=== PATIENT | male | born 1980 | race Caucasian/White ===

== ENCOUNTER 2020-01-10 21:32 | Emergency (ER) | payer OTHER ==
[~2020-01-10] VITALS: Ht 180.3 cm; Wt 81.6 kg
--- NOTE | 2020-01-10 21:41 | NUR ---
PATIENT BIBA TO ER FOR C/O ANXIETY A/O X4. ABLE TO SPEAK IN COMPLETE SENTENCES. FOLLOWS COMMANDS RESPIRATION EVEN AND UNLABORED NO CARDIOVASCULAR DISTRESS NOTED DENIES CHANGES IN /GI AMBULATES WITH STEADY GAIT SR UP FOR SAFETY. BED LOCKED AND LOWEST POSITION. INTRUCTED PATIENT TO CALL NURSE FOR ASSISTANCE. MONITORED ACCORDINGLY WILL CONTINUE TO MONITOR
--- NOTE | 2020-01-10 21:42 | NUR ---
DR. DIAZ AT BEDSIDE FOR MSE.
[2020-01-10] MEDS ORDERED: LORAZEPAM 1 MG TABLET ONE ×2 (21:45→22:41)
[2020-01-10] MEDS ORDERED: LORAZEPAM 0.5 MG TABLET PO ONE ×2 (21:45→22:45)
[2020-01-10] MEDS ORDERED: ONDANSETRON ODT 4 MG TAB.RAPDIS ONE (21:59)
[2020-01-10] MEDS ORDERED: ONDANSETRON ODT 4 MG TAB.RAPDIS SL ONE (22:00)
[2020-01-10] MEDS ORDERED: ACETAMINOPHEN ES 500 MG TABLET ONE (22:16)
[2020-01-10] MEDS ORDERED: ACETAMINOPHEN ES 500 MG TABLET PO ONE (22:45)
[2020-01-11] MEDS ORDERED: LORAZEPAM 0.5 MG TABLET PO ONE ×2 (03:15→07:00)
[2020-01-11] MEDS ORDERED: PANTOPRAZOLE SODIUM 40 MG TABLET.DR PO ONE ×2 (03:15)
[2020-01-11] MEDS ORDERED: LORAZEPAM 1 MG TABLET ONE (03:15)
[2020-01-11] MEDS ORDERED: ONDANSETRON 4 MG/2 ML VIAL IV ONE (03:30)
[2020-01-11] MEDS ORDERED: IV NORMAL SALINE 500 ML BAG IV ONE (03:30)
[2020-01-11] MEDS ORDERED: PANTOPRAZOLE SODIUM 40 MG VIAL IV ONE (03:30)
--- NOTE | 2020-01-11 03:30 | NUR ---
Patient with c/o nausea and emesis x1, verbal order received from Dr. Rubi to place IV line, NS 1 liter bolus, protonix 40mg IVP and zofran 8mg IVP.
[2020-01-11] MEDS ORDERED: PANTOPRAZOLE SODIUM 40 MG VIAL ONE (03:31)
[2020-01-11] MEDS ORDERED: ONDANSETRON 4 MG/2 ML VIAL ONE (03:31)
--- NOTE | 2020-01-11 05:55 | NUR ---
patient c/o chest pain or right side 03/17, VSS taken HR 120's, patient states feeling anxious at this time. Dr. Rubi made aware, new orders received.
[2020-01-11] MEDS ORDERED: LORAZEPAM 2 MG/1 ML VIAL ONE (06:12)
[2020-01-11] MEDS ORDERED: LORAZEPAM 2 MG/1 ML VIAL IV ONE (06:15)
[2020-01-11 06:23] LABS: BASOPHILS % (AUTO) 0.3 % (0.0-2.0); EOSINOPHILS % (AUTO) 0.1 % (0.0-7.0); HEMATOCRIT 50.4 % (36.7-47.1); HEMOGLOBIN 17.1 g/dL (12.5-16.3); LYMPHOCYTES # (AUTO) 1.6 K/uL (20.0-40.0); LYMPHOCYTES % (AUTO) 32.4 % (20.5-51.5); MEAN CORPUSCULAR HGB CONC 34 g/dL (32.5-36.3); MEAN CORPUSCULAR VOLUME 100.3 fL (73.0-96.2); MONOCYTES # (AUTO) 0.3 K/uL (2.0-10.0); NEUTROPHILS # (AUTO) 3.1 K/uL (1.8-8.9); NEUTROPHILS % (AUTO) 61.2 % (38.5-71.5); PLATELET COUNT (AUTO) 242 K/uL (152-348); RED BLOOD CELL COUNT(AUTO) 5.02 MIL/uL (4.06-5.63)
[2020-01-11 06:34] LABS: POTASSIUM 3.5 mmol/L (3.5-5.1)
[2020-01-11] MEDS ORDERED: LORAZEPAM 0.5 MG TABLET ONE (06:55)
--- NOTE | 2020-01-11 07:02 | NUR ---
Patient discharged to home in stable condition. Written and verbal after care instructions given. Patient verbalizes understanding of instructions. Stressed follow up or return to ER for worsening s/s. Ambulatory with steady gait. No signs of distress. Instructed not to drive. Will ride a cab home.
[2020-01-11 07:05] VITALS: BP 142/90
== END 2020-01-11 07:02 | disposition home or self-care (01) ==
LOC: ER 21:34
DX: F10.280 Alcohol dependence with alcohol-induced anxiety disorder (principal); F10.239 Alcohol dependence with withdrawal, unspecified; Y90.9 Presence of alcohol in blood, level not specified; I44.4 Left anterior fascicular block; R00.0 Tachycardia, unspecified
CPT/HCPCS: 36415; 71045; 80051; 84484; 85025; 93005; 96361; 96374; 96375; 99285; C9113; J2060; J2405; 70030-TC; A9150; J7030; Q0162

== ENCOUNTER 2022-01-22 03:44 | Emergency (ER) | payer OTHER ==
[~2022-01-22] VITALS: Ht 175.3 cm; Wt 101.6 kg
--- NOTE | 2022-01-22 04:20 | NUR ---
pt bib ra for binge drinking and depression.
[2022-01-22 04:38] LABS: HEMATOCRIT 52.1 % (36.7-47.1); MEAN CORPUSCULAR HEMOGLOBIN 35.5 uug (23.8-33.4); MEAN CORPUSCULAR VOLUME 100.4 fL (73.0-96.2); PLATELET COUNT (AUTO) 266 K/uL (152-348)
[2022-01-22 04:51] LABS: CARBON DIOXIDE 27 mmol/L (21-32); CHLORIDE 96 mmol/L (98-107); CREATININE 0.6 mg/dL (0.6-1.3); GLUCOSE 119 mg/dL (74-106); POTASSIUM 3.5 mmol/L (3.5-5.1); UREA NITROGEN, BLOOD 6 mg/dL (7-18)
[2022-01-22] MEDS ORDERED: BUSP5TAB3 PO (04:51)
[2022-01-22 04:57] LABS: ALANINE AMINOTRANSFERASE 80 U/L (16-63); ALKALINE PHOSPHATASE 74 U/L (50-136); ASPARTATE AMINOTRANSFERASE 63 U/L (15-37); BILIRUBIN,DIRECT 0.3 mg/dL (0.0-0.2); BILIRUBIN,TOTAL 0.9 mg/dL (0.2-1.0); CREATINE KINASE, TOTAL 586 U/L (39-308)
[2022-01-22 05:01] LABS: ACETAMINOPHEN < 2.0 ug/mL (10-30)
--- NOTE | 2022-01-22 05:05 | NUR ---
Dr. Wolf at bedside speaking with the pt.
[2022-01-22] MEDS ORDERED: MAGNESIUM SULFATE/D5W 100 ML IV SCH (05:15)
[2022-01-22] MEDS ORDERED: IV NS 1000 ML 1,000 ML IV ONE (05:15)
[2022-01-22] MEDS ORDERED: FOLIC ACID 5 MG/ML VIAL IV ONE ×2 (05:15→05:30)
[2022-01-22] MEDS ORDERED: THIAMINE HCL 200 MG/2 ML VIAL IV ONE (05:15)
[2022-01-22] MEDS ORDERED: LORAZEPAM 2 MG/1 ML VIAL IV ONE ×5 (05:15→14:30)
[2022-01-22] MEDS ORDERED: THIAMINE HCL 200 MG/2 ML VIAL ONE (05:29)
[2022-01-22] MEDS ORDERED: MAGNESIUM SULFATE/D5W 100 ML ONE ×2 (05:29→06:05)
[2022-01-22] MEDS ORDERED: LORAZEPAM 2 MG/1 ML VIAL ONE ×4 (05:31→14:29)
[2022-01-22 05:35] LABS: ETHANOL 319 MG/DL (0-0)
[2022-01-22] MEDS ORDERED: ONDANSETRON 4 MG/2 ML VIAL IV ONE ×2 (05:45→08:45)
[2022-01-22] MEDS ORDERED: ONDANSETRON 4 MG/2 ML VIAL ONE ×2 (05:50→08:13)
[2022-01-22 05:59] LABS: *BILIRUBIN,URIN NEGATIVE (NEGATIVE); *BLOOD, URINE 2+ (NEGATIVE); *CLARITY,URINE CLEAR (CLEAR); *COLOR,URINE YELLOW (YELLOW); *KETONES,URINE 2+ (NEGATIVE); *UROBILINOGEN,URINE 0.2 E.U./dl (NORMAL); LEUKOCYTE ESTERASE ,URINE NEGATIVE (NEGATIVE); NITRITE, URINE NEGATIVE (NEGATIVE); PH,URINE 5.5 (5.0-8.0); UGLUCOSE NEGATIVE (NEGATIVE)
[2022-01-22 06:15] LABS: *AMPHETAMINE, URINE NEGATIVE (NEGATIVE); *CANNABINOID, URINE POSITIVE (NEGATIVE); *COCCAINE, URINE NEGATIVE (NEGATIVE); *OPIATE, URINE NEGATIVE (NEGATIVE)
[2022-01-22 06:39] LABS: BACTERIA,URINE FEW /HPF (NONE SEEN); SQUAMOUS EPITHELIAL CELL,UR FEW /HPF (NONE SEEN); WBC,URINE 0-3 /HPF (0-3)
[2022-01-22 07:27] LABS: *PHENCYCLIDINE SCREEN,URINE NEGATIVE (NEGATIVE)
--- NOTE | 2022-01-22 07:55 | NUR ---
patient awake and ambulating to restroom, patient denies any dizziness. Steady Gait, AAOx4, GCS 15. patient verbalizes feeling anxious and nausea, no SI no DTO at the moment
--- NOTE | 2022-01-22 09:15 | NUR ---
reassessed patient post ativan. patient is resting with eyes closed, no signs or symptoms nor complaints of anxiety
[2022-01-22] MEDS ORDERED: diphenhydrAMINE 50 MG/1 ML VIAL ONE (10:11)
[2022-01-22] MEDS ORDERED: METOCLOPRAMIDE HCL 10 MG/2 ML VIAL ONE ×2 (10:11→15:14)
[2022-01-22] MEDS ORDERED: IV NORMAL SALINE 1000 ML BAG IV ONE ×2 (10:15→12:00)
[2022-01-22] MEDS ORDERED: diphenhydrAMINE 50 MG/1 ML VIAL IV ONE (10:15)
[2022-01-22] MEDS ORDERED: METOCLOPRAMIDE HCL 10 MG/2 ML VIAL IV ONE ×2 (10:15→15:30)
[2022-01-22] MEDS ORDERED: ONDA8TAB65 PO (12:29)
[2022-01-22] MEDS ORDERED: LORA0.5T48 PO (12:29)
--- NOTE | 2022-01-22 14:47 | NUR ---
patient moved from bed 5A to bed 4A, patient ambulated, steady gait
--- NOTE | 2022-01-22 15:06 | NUR ---
spoke to Rigo from [facility] explained patients condition and recieved authorization to begin process to admit patient
[2022-01-22] MEDS ORDERED: MAG HYDROX/AL HYDROX/SIMETH 30 ML LIQUID UDC ONE (16:14)
[2022-01-22] MEDS ORDERED: LIDOCAINE VISCUS 2% 15 ML UDC ONE (16:14)
[2022-01-22] MEDS ORDERED: MAG HYDROX/AL HYDROX/SIMETH 30 ML LIQUID UDC PO ONE (16:15)
[2022-01-22] MEDS ORDERED: LIDOCAINE VISCUS 2% 15 ML UDC MM ONE (16:15)
[2022-01-22] MEDS ORDERED: IV D5W-0.9% NS 1000 ML BAG IV ONE (16:30)
--- NOTE | 2022-01-22 16:49 | NUR ---
patient resting with eyes closed, heart rate 91 bpm on monitor SR
--- NOTE | 2022-01-22 17:53 | NUR ---
Patient discharged to home in stable condition. Written and verbal after care instructions given. Patient verbalizes understanding of instructions. Stressed follow up or return to ER for worsening s/s. steady gait, IV dc, wristband removed
[2022-01-22 18:54] VITALS: BP 126/83
== END 2022-01-22 18:00 | disposition home or self-care (01) ==
LOC: ER 03:47
DX: F10.239 Alcohol dependence with withdrawal, unspecified (principal); Y90.8 Blood alcohol level of 240 mg/100 ml or more; E86.0 Dehydration; F32.A Depression, unspecified; F41.9 Anxiety disorder, unspecified; R00.0 Tachycardia, unspecified; Z82.49 Family history of ischemic heart disease and other diseases of the circulatory system; R03.0 Elevated blood-pressure reading, without diagnosis of hypertension
CPT/HCPCS: 36415; 80048; 80076; 80299; 80307; 80320; 81001; 82550; 85025; 93005; 96361; 96365; 96375; 96376; 99285; J1200; J2060 ×4; J2405 ×2; J2765 ×2; J3411; J3475 ×2; J3490; J7040 ×3; J7042; A4663; G0480

== ENCOUNTER 2022-05-14 23:06 | Emergency (ER) | payer SELFPAY ==
[~2022-05-14] VITALS: Ht 175.3 cm; Wt 101.6 kg
[~2022-05-14 23:06] MED LIST: BUSP5TAB3 PO; LORA0.5T48 PO; ONDA8TAB65 PO
--- NOTE | 2022-05-15 00:50 | NUR ---
After being traiged, patient was sent back to waiting room due to no beds available in the ER.
--- NOTE | 2022-05-15 02:00 | NUR ---
Patient was called in the waiting room for vital sign check but patient was not present in the waiting room or outside of ER.
--- NOTE | 2022-05-15 02:30 | NUR ---
Patient was called again in the waiting room but patient was not present. PATIENT WAS TRIAGED BUT NOT SEEN BY [facility].
== END 2022-05-15 02:46 | disposition left against medical advice (07) ==
LOC: ER 23:24
DX: Z53.21 Procedure and treatment not carried out due to patient leaving prior to being seen by health care provider (principal)

== ENCOUNTER 2022-06-10 16:15 | Emergency (ER) | payer OTHER ==
[2022-06-10 17:17] LABS: HEMATOCRIT 46.7 % (36.7-47.1); MEAN CORPUSCULAR HEMOGLOBIN 33.4 uug (23.8-33.4); MEAN CORPUSCULAR VOLUME 101.5 fL (73.0-96.2); PLATELET COUNT (AUTO) 340 K/uL (152-348)
[2022-06-10 17:27] LABS: *CLARITY,URINE CLEAR (CLEAR); *COLOR,URINE YELLOW (YELLOW); *KETONES,URINE 1+ (NEGATIVE); LEUKOCYTE ESTERASE ,URINE NEGATIVE (NEGATIVE); NITRITE, URINE NEGATIVE (NEGATIVE); PH,URINE 5.5 (5.0-8.0); UGLUCOSE NEGATIVE (NEGATIVE)
[2022-06-10 17:28] LABS: *BILIRUBIN,URIN 1+ (NEGATIVE); *BLOOD, URINE NEGATIVE (NEGATIVE)
[2022-06-10 17:28] LABS: BILIRUBIN,TOTAL 0.3 mg/dL (0.2-1.0); CREATININE 0.7 mg/dL (0.6-1.3); POTASSIUM 3.2 mmol/L (3.5-5.1); TOTAL PROTEIN, SERUM 7.7 g/dL (6.4-8.2)
[2022-06-10 17:29] LABS: BACTERIA,URINE FEW /HPF (NONE SEEN); RBC,URINE 0-3 /HPF (0-3); SQUAMOUS EPITHELIAL CELL,UR NONE SEEN /HPF (NONE SEEN); WBC,URINE 0-3 /HPF (0-3)
--- NOTE | 2022-06-10 17:29 | NUR ---
at bedside for evaluation.
[2022-06-10] MEDS ORDERED: POTASSIUM BICARBONATE/CIT AC 25 MEQ TABLET.EFF PO ONE (17:45)
[2022-06-10] MEDS ORDERED: IV NS 1000 ML 1,000 ML IV ONE (17:45)
[2022-06-10] MEDS ORDERED: PANTOPRAZOLE SODIUM 40 MG VIAL IV ONE (17:45)
[2022-06-10] MEDS ORDERED: DIAZEPAM 10 MG/2 ML DISP.SYRIN IV ONE (17:45)
[2022-06-10] MEDS ORDERED: POTASSIUM BICARBONATE/CIT AC 25 MEQ TABLET.EFF ONE (18:07)
[2022-06-10] MEDS ORDERED: DIAZEPAM 10 MG/2 ML DISP.SYRIN ONE (18:07)
[2022-06-10] MEDS ORDERED: PANTOPRAZOLE SODIUM 40 MG VIAL ONE (18:07)
--- NOTE | 2022-06-10 19:20 | NUR ---
Report recieved from Alyssa SWEENEY.
[2022-06-10] MEDS ORDERED: MAGNESIUM SULFATE/D5W 100 ML ONE ×2 (20:07→21:11)
[2022-06-10] MEDS: MAGNESIUM SULFATE/D5W 100 ML IV SCH ×2 (20:41→21:16)
[2022-06-10] MEDS ORDERED: LORAZEPAM 2 MG/1 ML VIAL IV ONE (20:45)
[2022-06-10] MEDS ORDERED: LORAZEPAM 2 MG/1 ML VIAL ONE (20:52)
--- NOTE | 2022-06-10 23:03 | NUR ---
Patient A/Ox3. NAD noted. Ambulatory with steady gait/slow pace. Patient does not wish to proceed with medical care recommended by Dr. Wolf. Patient given information related to possible complications, up to and including , which could occur as a result of leaving the hospital at this time. Patient verbalizes understanding of risks involved due to leaving against medical advice. Patient has signed AMA form. Patient waiting in waiting room until father (Bart) picks him up.
[2022-06-10 23:06] VITALS: BP 130/86
== END 2022-06-10 23:00 | disposition left against medical advice (07) ==
LOC: ER 16:15
DX: F10.239 Alcohol dependence with withdrawal, unspecified (principal); S62.616A Displaced fracture of proximal phalanx of right little finger, initial encounter for closed fracture; S00.81XA Abrasion of other part of head, initial encounter; W19.XXXA Unspecified fall, initial encounter; Y92.89 Other specified places as the place of occurrence of the external cause; E87.6 Hypokalemia; F41.9 Anxiety disorder, unspecified; R00.0 Tachycardia, unspecified; I44.4 Left anterior fascicular block; G31.9 Degenerative disease of nervous system, unspecified; Z53.29 Procedure and treatment not carried out because of patient's decision for other reasons
CPT/HCPCS: 99285; 96365; 96375; 70450; 96361; 96366; 80053; 81001; 83690; 84443; 85025; 84484 ×2; 36415; 93005 ×2; 73140; 29130; J3360; J2060; J3475 ×2; C9113; J7040; A4663

== ENCOUNTER 2022-07-04 07:08 | Emergency (ER) | payer OTHER ==
[~2022-07-04] VITALS: Ht 175.3 cm; Wt 101.6 kg
--- NOTE | 2022-07-04 08:30 | NUR ---
Pt is resting in the bed. Awake a/o but lethergic. Pt states his last alcohol intake was 2 hours [employer].
[2022-07-04] MEDS ORDERED: LORAZEPAM 0.5 MG TABLET PO ONE (09:15)
[2022-07-04] MEDS ORDERED: IBUPROFEN 400 MG TABLET PO ONE (09:15)
[2022-07-04] MEDS ORDERED: LORAZEPAM 0.5 MG TABLET ONE (09:15)
[2022-07-04] MEDS ORDERED: IBUPROFEN 400 MG TABLET ONE (09:16)
--- NOTE | 2022-07-04 09:36 | NUR ---
Patient is resting comfortably in bed with eyes closed, NAD noted.
--- NOTE | 2022-07-04 09:55 | NUR ---
Pt walked to bathroom w/ steady gait.
[2022-07-04] MEDS ORDERED: CHLORDIAZEPOXIDE HCL 25 MG CAPSULE PO ONE (10:45)
[2022-07-04] MEDS ORDERED: CHLORDIAZEPOXIDE HCL 25 MG CAPSULE ONE (10:59)
--- NOTE | 2022-07-04 11:15 | NUR ---
Pt demanded for his father's number to be taken home by him. No numbr given, he was not able to recall father's number.
--- NOTE | 2022-07-04 11:21 | NUR ---
Pt provided a [employer] bus pass, pt refused, requesting to have a taxi voulcher, even though pt lives 2 [address] from [address] hospital.
--- NOTE | 2022-07-04 11:24 | NUR ---
Patient discharged to home in stable condition. Written and verbal after care instructions given. Patient verbalizes understanding of instructions. Stressed follow up or return to ER for worsening s/s. Pt walked out of Er w/ steady gait.
[2022-07-04 11:25] VITALS: BP 137/90
== END 2022-07-04 11:26 | disposition home or self-care (01) ==
LOC: ER 07:11
DX: S62.616A Displaced fracture of proximal phalanx of right little finger, initial encounter for closed fracture (principal); X58.XXXA Exposure to other specified factors, initial encounter; Y92.89 Other specified places as the place of occurrence of the external cause; F41.9 Anxiety disorder, unspecified; F10.129 Alcohol abuse with intoxication, unspecified
CPT/HCPCS: 71045; 73130; A4663

== ENCOUNTER 2022-07-11 03:28 | Emergency (ER) | payer OTHER ==
[~2022-07-11] VITALS: Ht 177.8 cm; Wt 99.8 kg
--- NOTE | 2022-07-11 03:46 | NUR ---
Dr Morales into eval patient.
[2022-07-11] MEDS ORDERED: LORAZEPAM 2 MG/1 ML VIAL IV ONE ×2 (04:00→07:00)
[2022-07-11] MEDS ORDERED: IV D5/ 0.9% NACL 1,000 ML IV ONE (04:00)
[2022-07-11] MEDS ORDERED: MORPHINE SULFATE 4 MG/1 ML DISP.SYRIN IV ONE (04:00)
[2022-07-11 04:20] LABS: HEMATOCRIT 46.7 % (36.7-47.1); MEAN CORPUSCULAR HEMOGLOBIN 32.7 uug (23.8-33.4); PLATELET COUNT (AUTO) 278 K/uL (152-348)
[2022-07-11 04:35] LABS: ALANINE AMINOTRANSFERASE 22 U/L (16-63); ALKALINE PHOSPHATASE 87 U/L (50-136); ASPARTATE AMINOTRANSFERASE 17 U/L (15-37); BILIRUBIN,TOTAL 0.3 mg/dL (0.2-1.0); CARBON DIOXIDE 30 mmol/L (21-32); CHLORIDE 104 mmol/L (98-107); CREATININE 0.6 mg/dL (0.6-1.3); ETHANOL 327 MG/DL (0-0); GLUCOSE 115 mg/dL (74-106); LIPASE 160 U/L (73-393); MAGNESIUM 1.7 mg/dL (1.8-2.4); POTASSIUM 2.9 mmol/L (3.5-5.1); TOTAL PROTEIN, SERUM 7.7 g/dL (6.4-8.2); UREA NITROGEN, BLOOD 3 mg/dL (7-18)
--- NOTE | 2022-07-11 04:39 | NUR ---
Patient taken down for CT scan.
--- NOTE | 2022-07-11 04:54 | NUR ---
Patient back from CT.
[2022-07-11] MEDS ORDERED: MORPHINE SULFATE 2 MG/1 ML DISP.SYRIN ONE (05:11)
[2022-07-11] MEDS ORDERED: MORPHINE SULFATE 4 MG/1 ML DISP.SYRIN ONE (05:11)
[2022-07-11] MEDS ORDERED: LORAZEPAM 2 MG/1 ML VIAL ONE ×2 (05:12→06:49)
[2022-07-11] MEDS ORDERED: CHLO25CA22 PO (05:45)
[2022-07-11] MEDS ORDERED: IV NORMAL SALINE 1000 ML BAG IV ONE ×2 (06:00→07:00)
--- NOTE | 2022-07-11 07:05 | NUR ---
Report given to Asha SWEENEY.
--- NOTE | 2022-07-11 07:16 | NUR ---
Patient is for discharge per report from previous nurse & Dr Pedro. Patient is asleep, easily arousable, oriented x4, moving all extremities, calm & cooperative, NAD. Addendum: 07/11/22 at 1115 by ALEXANDER ...ER doctor (Dr Johnson and not Dr Pedro)
[2022-07-11] MEDS ORDERED: ONDANSETRON 4 MG/2 ML VIAL ONE (07:55)
[2022-07-11] MEDS ORDERED: ONDANSETRON 4 MG/2 ML VIAL IV ONE (08:00)
--- NOTE | 2022-07-11 08:27 | NUR ---
IV removed. Catheter intact and site benign. Pressure and 4x4 gauze applied to site. No bleeding noted. Patient discharged to home in stable condition with steady gait. [employer] voucher provided by RN accounts payable supervisor Trina. Written and verbal after care instructions given to patient. Patient verbalized understanding and compliance of instructions. Stressed follow up with primary doctor or return to ER for worsening s/s. STOP DRINKING ALCOHOL PLEASE.
== END 2022-07-11 08:35 | disposition home or self-care (01) ==
LOC: ER 03:30
DX: F10.239 Alcohol dependence with withdrawal, unspecified (principal); S00.83XA Contusion of other part of head, initial encounter; S62.616A Displaced fracture of proximal phalanx of right little finger, initial encounter for closed fracture; W45.8XXA Other foreign body or object entering through skin, initial encounter; Y92.89 Other specified places as the place of occurrence of the external cause; F10.229 Alcohol dependence with intoxication, unspecified; Y90.8 Blood alcohol level of 240 mg/100 ml or more; R00.0 Tachycardia, unspecified; E87.6 Hypokalemia; F41.9 Anxiety disorder, unspecified; R94.31 Abnormal electrocardiogram [ECG] [EKG]; R51.9 Headache, unspecified
CPT/HCPCS: 80053; 83690; 83735; 85025; 36415; 93005; 73130; 70450; 72125; 99285; 96361; 96374; 96375; 80320; 29125; J2060 ×2; J2405; J2270 ×2; J7040 ×2; A4663; G0480

== ENCOUNTER 2022-07-12 22:09 | Emergency (ER) | payer OTHER ==
[~2022-07-12] VITALS: Ht 177.8 cm; Wt 99.8 kg
[~2022-07-12 22:09] MED LIST changes: +CHLO25CA22 PO
[2022-07-12] MEDS ORDERED: LORAZEPAM 2 MG/1 ML VIAL IV ONE (22:45)
[2022-07-12] MEDS ORDERED: IV NORMAL SALINE 1000 ML BAG IV ONE (22:45)
[2022-07-12] MEDS ORDERED: LORAZEPAM 0.5 MG TABLET ONE (23:56)
[2022-07-13 00:07] LABS: HEMATOCRIT 44.5 % (36.7-47.1); MEAN CORPUSCULAR HEMOGLOBIN 32.6 uug (23.8-33.4); MEAN CORPUSCULAR VOLUME 96.1 fL (73.0-96.2); PLATELET COUNT (AUTO) 261 K/uL (152-348)
[2022-07-13 00:12] LABS: CREATININE 0.7 mg/dL (0.6-1.3); POTASSIUM 3.1 mmol/L (3.5-5.1)
[2022-07-13 00:17] LABS: BILIRUBIN,TOTAL 0.4 mg/dL (0.2-1.0); MAGNESIUM 1.9 mg/dL (1.8-2.4); TOTAL PROTEIN, SERUM 7.3 g/dL (6.4-8.2)
[2022-07-13] MEDS ORDERED: POTASSIUM CHLORIDE 20 MEQ TAB.PRT.SR PO ONE (00:30)
[2022-07-13] MEDS ORDERED: LORAZEPAM 0.5 MG TABLET PO ONE ×2 (00:45)
[2022-07-13] MEDS ORDERED: LORAZEPAM 1 MG TABLET ONE (00:47)
[2022-07-13] MEDS ORDERED: POTASSIUM CHLORIDE 20 MEQ TAB.PRT.SR ONE (00:48)
[2022-07-13] MEDS ORDERED: ACETAMINOPHEN ES 500 MG TABLET ONE (01:13)
[2022-07-13] MEDS ORDERED: ACETAMINOPHEN ES 500 MG TABLET PO ONE (01:15)
[2022-07-13 03:39] VITALS: BP 138/81
== END 2022-07-13 03:48 | disposition home or self-care (01) ==
LOC: ER 22:09
DX: F10.129 Alcohol abuse with intoxication, unspecified (principal); Y90.8 Blood alcohol level of 240 mg/100 ml or more; F41.9 Anxiety disorder, unspecified; E87.6 Hypokalemia; S62.306D Unspecified fracture of fifth metacarpal bone, right hand, subsequent encounter for fracture with routine healing; X58.XXXD Exposure to other specified factors, subsequent encounter; Z91.199 Patient's noncompliance with other medical treatment and regimen due to unspecified reason; R03.0 Elevated blood-pressure reading, without diagnosis of hypertension
CPT/HCPCS: 36415; 83735; 85025; A4663; A9150; G0480; J7040

== ENCOUNTER 2022-07-21 13:13 | Emergency (ER) | payer OTHER ==
[~2022-07-21] VITALS: Ht 177.8 cm; Wt 99.8 kg
[2022-07-21] MEDS ORDERED: ONDANSETRON 4 MG/2 ML VIAL IV ONE (18:45)
[2022-07-21] MEDS ORDERED: IV NORMAL SALINE 1000 ML BAG IV ONE (18:45)
[2022-07-21] MEDS ORDERED: LORAZEPAM 2 MG/1 ML VIAL IV ONE (18:45)
[2022-07-21] MEDS ORDERED: THIAMINE HCL 100 MG TABLET PO ONE (18:45)
[2022-07-21 19:01] LABS: HEMATOCRIT 45.9 % (36.7-47.1); MEAN CORPUSCULAR HEMOGLOBIN 32.5 uug (23.8-33.4); MEAN CORPUSCULAR VOLUME 96.3 fL (73.0-96.2); PLATELET COUNT (AUTO) 214 K/uL (152-348)
[2022-07-21 19:06] LABS: *BILIRUBIN,URIN NEGATIVE (NEGATIVE); *BLOOD, URINE NEGATIVE (NEGATIVE); *CLARITY,URINE CLEAR (CLEAR); *COLOR,URINE YELLOW (YELLOW); *KETONES,URINE NEGATIVE (NEGATIVE); *UROBILINOGEN,URINE 0.2 E.U./dl (NORMAL); LEUKOCYTE ESTERASE ,URINE NEGATIVE (NEGATIVE); NITRITE, URINE NEGATIVE (NEGATIVE); PH,URINE 6.5 (5.0-8.0); UGLUCOSE NEGATIVE (NEGATIVE)
[2022-07-21 19:15] LABS: ALANINE AMINOTRANSFERASE 25 U/L (16-63); ALKALINE PHOSPHATASE 105 U/L (50-136); ASPARTATE AMINOTRANSFERASE 32 U/L (15-37); BILIRUBIN,DIRECT 0.2 mg/dL (0.0-0.2); BILIRUBIN,TOTAL 0.6 mg/dL (0.2-1.0); CARBON DIOXIDE 26 mmol/L (21-32); CHLORIDE 94 mmol/L (98-107); CREATININE 0.8 mg/dL (0.6-1.3); GLUCOSE 142 mg/dL (74-106); TOTAL PROTEIN, SERUM 7.3 g/dL (6.4-8.2); UREA NITROGEN, BLOOD 8 mg/dL (7-18)
--- NOTE | 2022-07-21 19:15 | NUR ---
Received report from Elizabeth SWEENEY.
--- NOTE | 2022-07-21 19:19 | NUR ---
sbar to Valerie SWEENEY
[2022-07-21 19:21] LABS: ETHANOL 213 MG/DL (0-0)
[2022-07-21 19:23] LABS: *AMPHETAMINE, URINE NEGATIVE (NEGATIVE); *CANNABINOID, URINE POSITIVE (NEGATIVE); *COCCAINE, URINE NEGATIVE (NEGATIVE); *OPIATE, URINE NEGATIVE (NEGATIVE); *PHENCYCLIDINE SCREEN,URINE NEGATIVE (NEGATIVE)
[2022-07-21] MEDS ORDERED: ONDANSETRON 4 MG/2 ML VIAL ONE (19:44)
[2022-07-21] MEDS ORDERED: PROCHLORPERAZINE EDISYLATE 10 MG/2 ML VIAL IV ONE (19:45)
[2022-07-21] MEDS ORDERED: THIAMINE HCL 100 MG TABLET ONE (19:45)
[2022-07-21] MEDS ORDERED: POTASSIUM BICARBONATE/CIT AC 25 MEQ TABLET.EFF PO ONE (19:45)
[2022-07-21 19:46] LABS: POTASSIUM 2.8 mmol/L (3.5-5.1)
[2022-07-21] MEDS ORDERED: LORAZEPAM 2 MG/1 ML VIAL ONE (19:46)
[2022-07-21 19:47] LABS: ACETAMINOPHEN < 10.0 ug/mL (10-30)
[2022-07-21] MEDS ORDERED: POTASSIUM BICARBONATE/CIT AC 25 MEQ TABLET.EFF ONE (19:50)
[2022-07-21] MEDS ORDERED: PROCHLORPERAZINE EDISYLATE 10 MG/2 ML VIAL ONE (19:51)
[2022-07-21] MEDS ORDERED: MAGNESIUM SULFATE/D5W 100 ML ONE (19:51)
[2022-07-21] MEDS: MAGNESIUM SULFATE/D5W 100 ML IV SCH ×2 (19:52→21:30)
[2022-07-21] MEDS ORDERED: CHLORDIAZEPOXIDE HCL 25 MG CAPSULE PO ONE (20:00)
--- NOTE | 2022-07-21 21:20 | NUR ---
Unable to give 2nd bag of Magnesium b/c patient eloped from facility.
--- NOTE | 2022-07-21 21:29 | NUR ---
Patient eloped from facility. ER physician notified.
== END 2022-07-21 21:30 | disposition left against medical advice (07) ==
LOC: ER 13:25
DX: F10.229 Alcohol dependence with intoxication, unspecified (principal); Y90.7 Blood alcohol level of 200-239 mg/100 ml; E87.6 Hypokalemia; R00.0 Tachycardia, unspecified; R25.1 Tremor, unspecified
CPT/HCPCS: 80076; 80048; 81003; 82607; 85025; 36415; 93005; 99284; 96365; 96375; 80299; 80320; 80307; J2060; J3475; J0780; J7040; A4663; G0480; J2405

== ENCOUNTER 2023-05-19 12:57 | Emergency (ER) | payer MEDICAID, OTHER ==
[~2023-05-19] VITALS: Ht 172.7 cm; Wt 104.3 kg
[2023-05-19] MEDS ORDERED: ONDANSETRON 4 MG/2 ML VIAL IV ONE (13:15)
[2023-05-19] MEDS ORDERED: IV NORMAL SALINE 500 ML BAG IV ONE (13:15)
[2023-05-19] MEDS ORDERED: ONDANSETRON 4 MG/2 ML VIAL ONE (13:37)
[2023-05-19 13:46] LABS: BASOPHILS % (AUTO) 1.8 % (0.0-2.0); EOSINOPHILS % (AUTO) 0.5 % (0.0-7.0); HEMATOCRIT 34.2 % (36.7-47.1); HEMOGLOBIN 10.7 g/dL (12.5-16.3); LYMPHOCYTES # (AUTO) 0.9 K/uL (0.8-4.8); MEAN CORPUSCULAR HEMOGLOBIN 25.3 uug (23.8-33.4); MEAN CORPUSCULAR HGB CONC 31 g/dL (32.5-36.3); MEAN CORPUSCULAR VOLUME 80.8 fL (73.0-96.2); MONOCYTES # (AUTO) 0.3 K/uL (0.1-1.30); MONOCYTES % (AUTO) 11.8 % (0.0-11.0); NEUTROPHILS # (AUTO) 1.2 K/uL (1.8-8.9); NEUTROPHILS % (AUTO) 49.9 % (38.5-71.5); PLATELET COUNT (AUTO) 278 K/uL (152-348); RED BLOOD CELL COUNT(AUTO) 4.23 MIL/uL (4.06-5.63); RED CELL DISTRIBUTION WIDTH 24.8 % (12.1-16.2); WHITE BLOOD COUNT (AUTO) 2.5 K/uL (3.6-10.2)
[2023-05-19 13:55] LABS: DIFFERENTIAL COMMENT 1
[2023-05-19 13:58] LABS: ALANINE AMINOTRANSFERASE 32 U/L (16-63); ALBUMIN 3.2 g/dL (3.4-5.0); ALKALINE PHOSPHATASE 71 U/L (50-136); ASPARTATE AMINOTRANSFERASE 22 U/L (15-37); BILIRUBIN,TOTAL 0.3 mg/dL (0.2-1.0); CALCIUM 8.7 mg/dL (8.5-10.1); CARBON DIOXIDE 25 mmol/L (21-32); CHLORIDE 101 mmol/L (98-107); CREATININE 0.6 mg/dL (0.6-1.3); GLUCOSE 96 mg/dL (74-106); LIPASE 91 U/L (73-393); POTASSIUM 3.6 mmol/L (3.5-5.1); SODIUM SERUM 140 mmol/L (136-145); TOTAL PROTEIN, SERUM 6.9 g/dL (6.4-8.2); UREA NITROGEN, BLOOD 8 mg/dL (7-18)
[2023-05-19] MEDS ORDERED: HALOPERIDOL LACTATE 5 MG/1 ML VIAL IV ONE (15:15)
[2023-05-19] MEDS ORDERED: HALOPERIDOL LACTATE 5 MG/1 ML VIAL ONE (15:20)
[2023-05-19] MEDS ORDERED: busPIRone 5 MG TABLET PO ONE (16:45)
[2023-05-19] MEDS ORDERED: busPIRone 5 MG TABLET ONE (16:45)
[2023-05-19 18:14] VITALS: BP 116/95; O2SAT 96
== END 2023-05-19 18:20 | disposition home or self-care (01) ==
LOC: ER 12:57
DX: F10.10 Alcohol abuse, uncomplicated (principal); Z79.899 Other long term (current) drug therapy; Y90.8 Blood alcohol level of 240 mg/100 ml or more
CPT/HCPCS: 80053; 83690; 85025; 36415; 76705; 99285; 96361; 96374; 96375; 80320; J1630; J2405; J7040; A4663; G0480

== ENCOUNTER 2024-06-27 00:25 | Inpatient (IN) | payer MEDICAID ==
[~2024-06-27] VITALS: Ht 180.3 cm; Wt 99.8 kg
[2024-06-27] MEDS ORDERED: PHENOBARBITAL SODIUM 130 MG/1 ML DISP.SYRIN ONE ×2 (01:32→04:42)
[2024-06-27 01:47] LABS: ETHANOL 217 MG/DL (0-10)
[2024-06-27 01:48] LABS: AMMONIA < 10 umol/L (11-32)
[2024-06-27 01:51] LABS: BASOPHILS % (AUTO) 0.2 % (0.0-2.0); HEMATOCRIT 42.7 % (36.7-47.1); HEMOGLOBIN 13.3 g/dL (12.5-16.3); LYMPHOCYTES # (AUTO) 0.3 K/uL (0.8-4.8); LYMPHOCYTES % (AUTO) 5.5 % (20.5-51.5); MEAN CORPUSCULAR HEMOGLOBIN 25.2 uug (23.8-33.4); MEAN CORPUSCULAR HGB CONC 31 g/dL (32.5-36.3); MONOCYTES # (AUTO) 0.4 K/uL (0.1-1.30); MONOCYTES % (AUTO) 7.4 % (0.0-11.0); NEUTROPHILS # (AUTO) 4.9 K/uL (1.8-8.9); NEUTROPHILS % (AUTO) 86.9 % (38.5-71.5); PLATELET COUNT (AUTO) 242 K/uL (152-348); RED BLOOD CELL COUNT(AUTO) 5.27 MIL/uL (4.06-5.63); RED CELL DISTRIBUTION WIDTH 28.5 % (12.1-16.2); WHITE BLOOD COUNT (AUTO) 5.6 K/uL (3.6-10.2)
[2024-06-27 01:52] LABS: DIFFERENTIAL COMMENT 1
[2024-06-27] MEDS: PHENOBARBITAL SODIUM 130 MG/1 ML DISP.SYRIN IV ONE ×2 (03:10→04:30)
[2024-06-27] MEDS ORDERED: ONDANSETRON 4 MG/2 ML VIAL ONE ×2 (03:55→05:00)
[2024-06-27] MEDS: ONDANSETRON 4 MG/2 ML VIAL IV ONE (04:00)
[2024-06-27] MEDS ORDERED: CHLO25CA22 PO (04:59)
[2024-06-27] MEDS: IV NORMAL SALINE 1000 ML BAG IV ONE (05:00)
[2024-06-27] MEDS ORDERED: diphenhydrAMINE 50 MG/1 ML VIAL ONE ×2 (05:39→06:41)
[2024-06-27] MEDS ORDERED: PROCHLORPERAZINE EDISYLATE 10 MG/2 ML VIAL ONE ×2 (05:39→06:41)
[2024-06-27] MEDS: diphenhydrAMINE 50 MG/1 ML VIAL IV ONE ×2 (06:00→06:45)
[2024-06-27] MEDS: PROCHLORPERAZINE EDISYLATE 10 MG/2 ML VIAL IV ONE ×2 (06:00→06:45)
[2024-06-27 06:38] LABS: CALCIUM 8.8 mg/dL (8.5-10.1); CARBON DIOXIDE 26 mmol/L (21-32); CHLORIDE 102 mmol/L (98-107); CREATININE 0.7 mg/dL (0.6-1.3); GLUCOSE 118 mg/dL (74-106); POTASSIUM 3.5 mmol/L (3.5-5.1); SODIUM SERUM 143 mmol/L (136-145); UREA NITROGEN, BLOOD 4 mg/dL (7-18)
[2024-06-27 06:48] LABS: ALANINE AMINOTRANSFERASE 77 U/L (16-63); ALBUMIN 3.4 g/dL (3.4-5.0); ALKALINE PHOSPHATASE 108 U/L (50-136); ASPARTATE AMINOTRANSFERASE 52 U/L (15-37); BILIRUBIN,DIRECT 0.3 mg/dL (0.0-0.2); BILIRUBIN,TOTAL 0.7 mg/dL (0.2-1.0); TOTAL PROTEIN, SERUM 8.2 g/dL (6.4-8.2)
[2024-06-27 07:00] LABS: LIPASE 28 U/L (16-77)
[2024-06-27 07:04] LABS: ACETAMINOPHEN < 2.0 ug/mL (10-30)
[2024-06-27] MEDS ORDERED: CHLORDIAZEPOXIDE HCL 25 MG CAPSULE ONE (07:49)
[2024-06-27] MEDS: CHLORDIAZEPOXIDE HCL 25 MG CAPSULE PO ONE (08:00)
[2024-06-27 08:22] LABS: *AMPHETAMINE, URINE NEGATIVE (NEGATIVE); *BARBITURATE, URINE POSITIVE (NEGATIVE); *BENZODIAZEPINE, URINE POSITIVE (NEGATIVE); *CANNABINOID, URINE POSITIVE (NEGATIVE); *COCCAINE, URINE NEGATIVE (NEGATIVE); *OPIATE, URINE NEGATIVE (NEGATIVE); *PHENCYCLIDINE SCREEN,URINE NEGATIVE (NEGATIVE); FENTANYL, URINE NEGATIVE (NEGATIVE)
[2024-06-27 08:23] LABS: *BILIRUBIN,URIN NEGATIVE (NEGATIVE); *BLOOD, URINE NEGATIVE (NEGATIVE); *CLARITY,URINE CLEAR (CLEAR); *COLOR,URINE YELLOW (YELLOW); *KETONES,URINE 3+ (NEGATIVE); *PROTEIN,URINE 1+ (NEGATIVE); *UROBILINOGEN,URINE 0.2 E.U./dl (NORMAL); LEUKOCYTE ESTERASE ,URINE NEGATIVE (NEGATIVE); NITRITE, URINE NEGATIVE (NEGATIVE); UGLUCOSE NEGATIVE (NEGATIVE)
[2024-06-27] MEDS ORDERED: THIAMINE HCL 100 MG TABLET ONE (08:23)
[2024-06-27] MEDS: IV NS 1000 ML 1,000 ML IV ONE ×3 (08:30→13:12)
[2024-06-27] MEDS: THIAMINE HCL 100 MG TABLET PO ONE ×2 (08:30→10:15)
[2024-06-27 08:34] LABS: BACTERIA,URINE FEW /HPF (NONE SEEN); RBC,URINE NONE SEEN /HPF (0-3); SQUAMOUS EPITHELIAL CELL,UR FEW /HPF (NONE SEEN); WBC,URINE 0-3 /HPF (0-3)
[2024-06-27] MEDS ORDERED: LORAZEPAM 1 MG TABLET ONE (10:14)
[2024-06-27] MEDS ORDERED: POTASSIUM BICARBONATE/CIT AC 25 MEQ TABLET.EFF ONE (10:14)
[2024-06-27] MEDS ORDERED: MAGNESIUM SULFATE/D5W 400 ML ONE (10:15)
[2024-06-27] MEDS: MAGNESIUM SULFATE/D5W 100 ML IV SCH (10:15)
[2024-06-27] MEDS: LORAZEPAM 0.5 MG TABLET PO ONE (10:15)
[2024-06-27] MEDS: POTASSIUM BICARBONATE/CIT AC 25 MEQ TABLET.EFF PO ONE (10:15)
[2024-06-27 15:39] VITALS: BP 122/88; TEMP 98.3; O2SAT 100
[2024-06-27] MEDS: ONDANSETRON 4 MG/2 ML VIAL IV PRN (16:04)
[2024-06-27] MEDS: CHLORDIAZEPOXIDE HCL 25 MG CAPSULE PO SCH (16:04)
[2024-06-27 16:08] VITALS: BP 128/92; TEMP 98; O2SAT 100
[2024-06-27] MEDS: LORAZEPAM 2 MG/1 ML VIAL IV ONE (16:15)
[2024-06-27] MEDS ORDERED: MAGNESIUM HYDROXIDE 30 ML LIQUID UDC PO PRN (19:30)
[2024-06-27] MEDS ORDERED: MAGNESIUM SULFATE/D5W 100 ML IV SCH (19:30)
[2024-06-27 20:00] VITALS: BP 136/96; TEMP 98; O2SAT 98
[2024-06-27] MEDS: ACETAMINOPHEN 325 MG TABLET PO PRN (22:07)
[2024-06-27] MEDS: ENOXAPARIN SODIUM 40 MG/0.4 ML DISP.SYRIN SQ SCH (22:08)
[2024-06-27] MEDS: LORAZEPAM 1 MG TABLET PO PRN (22:46)
[2024-06-28 00:18] VITALS: BP 132/89; TEMP 98; O2SAT 94
[2024-06-28] MEDS: IV NS 1000 ML 1,000 ML IV PRN (03:55)
[2024-06-28 04:11] VITALS: BP 158/100; TEMP 97.6; O2SAT 96
[2024-06-28] MEDS: GUAIFENESIN/DEXTROMETHORPHAN 5 ML UDC PO PRN (05:35)
[2024-06-28 06:46] LABS: BASOPHILS % (AUTO) 0.5 % (0.0-2.0); DIFFERENTIAL COMMENT 0; EOSINOPHILS % (AUTO) 0.2 % (0.0-7.0); HEMATOCRIT 35.3 % (36.7-47.1); HEMOGLOBIN 11.2 g/dL (12.5-16.3); LYMPHOCYTES % (AUTO) 20.2 % (20.5-51.5); MEAN CORPUSCULAR HEMOGLOBIN 25.5 uug (23.8-33.4); MEAN CORPUSCULAR HGB CONC 32 g/dL (32.5-36.3); MEAN CORPUSCULAR VOLUME 80.3 fL (73.0-96.2); MONOCYTES # (AUTO) 0.6 K/uL (0.1-1.30); MONOCYTES % (AUTO) 11.7 % (0.0-11.0); NEUTROPHILS # (AUTO) 3.2 K/uL (1.8-8.9); NEUTROPHILS % (AUTO) 67.4 % (38.5-71.5); PLATELET COUNT (AUTO) 237 K/uL (152-348); RED BLOOD CELL COUNT(AUTO) 4.39 MIL/uL (4.06-5.63); RED CELL DISTRIBUTION WIDTH 27.4 % (12.1-16.2); WHITE BLOOD COUNT (AUTO) 4.7 K/uL (3.6-10.2)
[2024-06-28 07:38] LABS: CALCIUM 8.4 mg/dL (8.5-10.1); CARBON DIOXIDE 26 mmol/L (21-32); CHLORIDE 102 mmol/L (98-107); CREATININE 0.5 mg/dL (0.6-1.3); GLUCOSE 90 mg/dL (74-106); MAGNESIUM 1.7 mg/dL (1.8-2.4); POTASSIUM 3.3 mmol/L (3.5-5.1); SODIUM SERUM 136 mmol/L (136-145); UREA NITROGEN, BLOOD 5 mg/dL (7-18)
[2024-06-28] MEDS ORDERED: busPIRone 5 MG TABLET PO SCH (09:00)
[2024-06-28] MEDS: busPIRone 5 MG TABLET PO SCH (10:20)
[2024-06-28] MEDS: MAGNESIUM OXIDE 400 MG TABLET PO ONE (12:22)
[2024-06-28] MEDS: POTASSIUM CHLORIDE 20 MEQ TAB.PRT.SR PO ONE (12:22)
[2024-06-28] MEDS: ONDANSETRON 4 MG/2 ML VIAL IV PRN (12:26)
[2024-06-28 12:27] VITALS: BP 135/93; TEMP 98; O2SAT 97
[2024-06-28] MEDS ORDERED: BUSP10TA3 PO (12:32)
[2024-06-28] MEDS: LOPERAMIDE HCL 2 MG CAPSULE PO PRN (13:19)
[2024-06-28] MEDS: busPIRone 10 MG TABLET PO SCH (17:07)
[2024-06-28 17:10] VITALS: BP 129/86; TEMP 98.4; O2SAT 97
[2024-06-28 20:00] VITALS: BP 125/87; TEMP 97.9; O2SAT 95
[2024-06-29] VITALS: BP 123/79; TEMP 97.9; O2SAT 96
[2024-06-29 04:00] VITALS: BP 124/77; TEMP 97.6; O2SAT 95
[2024-06-29 08:07] VITALS: BP 138/91; TEMP 98; O2SAT 96
[2024-06-29] MEDS ORDERED: SUCRALFATE 1 G/10 ML LIQUID UDC GT SCH (11:30)
[2024-06-29 12:00] VITALS: BP 126/77; TEMP 98.6; O2SAT 95
[2024-06-29] MEDS: SUCRALFATE 1 G TABLET PO SCH (13:43)
[2024-06-29] MEDS ORDERED: CHLORDIAZEPOXIDE HCL 25 MG CAPSULE PO PRN (15:00)
[2024-06-29 16:18] VITALS: BP 136/95; TEMP 98.4; O2SAT 95
[2024-06-29] MEDS: CHLORDIAZEPOXIDE HCL 25 MG CAPSULE PO SCH (17:09)
[2024-06-29 19:40] VITALS: BP 129/90; TEMP 97.9; O2SAT 96
[2024-06-30 00:26] VITALS: BP 125/94; TEMP 97.7; O2SAT 96
[2024-06-30 04:20] VITALS: BP 132/95; TEMP 97.8; O2SAT 96
[2024-06-30 07:08] LABS: BASOPHILS # (AUTO) 0.1 K/UL (0.0-0.2); BASOPHILS % (AUTO) 0.6 % (0.0-2.0); EOSINOPHILS % (AUTO) 0.3 % (0.0-7.0); HEMATOCRIT 35.2 % (36.7-47.1); HEMOGLOBIN 11.1 g/dL (12.5-16.3); LYMPHOCYTES # (AUTO) 1.2 K/uL (0.8-4.8); LYMPHOCYTES % (AUTO) 15.2 % (20.5-51.5); MEAN CORPUSCULAR HEMOGLOBIN 25.4 uug (23.8-33.4); MEAN CORPUSCULAR HGB CONC 32 g/dL (32.5-36.3); MEAN CORPUSCULAR VOLUME 80.6 fL (73.0-96.2); MONOCYTES # (AUTO) 0.6 K/uL (0.1-1.30); MONOCYTES % (AUTO) 7.5 % (0.0-11.0); NEUTROPHILS % (AUTO) 76.4 % (38.5-71.5); PLATELET COUNT (AUTO) 238 K/uL (152-348); RED BLOOD CELL COUNT(AUTO) 4.37 MIL/uL (4.06-5.63); RED CELL DISTRIBUTION WIDTH 26.7 % (12.1-16.2); WHITE BLOOD COUNT (AUTO) 7.8 K/uL (3.6-10.2)
[2024-06-30 07:12] LABS: DIFFERENTIAL COMMENT 1
[2024-06-30 07:19] LABS: CARBON DIOXIDE 25 mmol/L (21-32); CHLORIDE 99 mmol/L (98-107); CREATININE 0.6 mg/dL (0.6-1.3); GLUCOSE 86 mg/dL (74-106); MAGNESIUM 1.7 mg/dL (1.8-2.4); PHOSPHOROUS 2.2 mg/dL (2.5-4.9); POTASSIUM 3.2 mmol/L (3.5-5.1); SODIUM SERUM 133 mmol/L (136-145); UREA NITROGEN, BLOOD 3 mg/dL (7-18)
[2024-06-30 07:54] VITALS: BP 132/94; TEMP 98.6; O2SAT 96
[2024-06-30] MEDS: POTASSIUM CHLORIDE 20 MEQ TAB.PRT.SR PO ONE (08:27)
[2024-06-30] MEDS: MAGNESIUM OXIDE 400 MG TABLET PO ONE (08:28)
[2024-06-30 11:59] VITALS: BP 123/94; TEMP 97.7; O2SAT 98
[2024-06-30] MEDS: NEUTRA PHOS PACKET PO ONE (14:08)
[2024-06-30 15:59] VITALS: BP 116/90; TEMP 97.9; O2SAT 97
[2024-06-30 19:00] VITALS: BP 119/78; TEMP 98.1; O2SAT 96
[2024-07-01] VITALS: BP 135/72; TEMP 98.9; O2SAT 95
[2024-07-01 04:00] VITALS: BP 140/89; TEMP 97.9; O2SAT 95
[2024-07-01 06:49] LABS: CALCIUM 8.5 mg/dL (8.5-10.1); CREATININE 0.7 mg/dL (0.6-1.3); MAGNESIUM 1.9 mg/dL (1.8-2.4); PHOSPHOROUS 2.4 mg/dL (2.5-4.9); POTASSIUM 3.6 mmol/L (3.5-5.1)
[2024-07-01 07:37] LABS: WHITE BLOOD COUNT (AUTO) 7.5 K/uL (3.6-10.2)
[2024-07-01 07:38] LABS: BASOPHILS % (AUTO) 0.4 % (0.0-2.0); DIFFERENTIAL COMMENT 0; EOSINOPHILS % (AUTO) 0.4 % (0.0-7.0); HEMATOCRIT 35.9 % (36.7-47.1); HEMOGLOBIN 11.3 g/dL (12.5-16.3); LYMPHOCYTES # (AUTO) 1.6 K/uL (0.8-4.8); LYMPHOCYTES % (AUTO) 20.7 % (20.5-51.5); MEAN CORPUSCULAR HEMOGLOBIN 25.7 uug (23.8-33.4); MEAN CORPUSCULAR HGB CONC 31 g/dL (32.5-36.3); MEAN CORPUSCULAR VOLUME 81.6 fL (73.0-96.2); MONOCYTES # (AUTO) 0.7 K/uL (0.1-1.30); MONOCYTES % (AUTO) 9.4 % (0.0-11.0); NEUTROPHILS # (AUTO) 5.2 K/uL (1.8-8.9); NEUTROPHILS % (AUTO) 69.1 % (38.5-71.5); PLATELET COUNT (AUTO) 243 K/uL (152-348); RED CELL DISTRIBUTION WIDTH 27.3 % (12.1-16.2)
[2024-07-01 07:45] VITALS: BP 129/87; TEMP 98.4; O2SAT 98
[2024-07-01 11:18] VITALS: BP 128/88; TEMP 98.2; O2SAT 98
[2024-07-01 15:05] VITALS: BP 117/77; TEMP 98.2; O2SAT 100
[2024-07-01] MEDS: NEUTRA PHOS PACKET PO ONE (16:53)
[2024-07-01] MEDS ORDERED: SUCR1ORA PO (17:09)
== END 2024-07-01 16:30 | disposition home or self-care (01) | DRG 816 ==
LOC: ER 00:29 → MEDSURG3 13:19 → TELE3 15:00 → MEDSURG3 07-01 09:35
PROVIDERS: ADMIT Nurse Practitioner Acute Care; ATTEND Nurse Practitioner Acute Care
DX: T51.0X1A Toxic effect of ethanol, accidental (unintentional), initial encounter (principal); G92.8 Other toxic encephalopathy; R00.0 Tachycardia, unspecified; E83.42 Hypomagnesemia; E87.6 Hypokalemia; F41.1 Generalized anxiety disorder; Z79.899 Other long term (current) drug therapy; F10.139 Alcohol abuse with withdrawal, unspecified; F10.129 Alcohol abuse with intoxication, unspecified; Y90.7 Blood alcohol level of 200-239 mg/100 ml; Y92.89 Other specified places as the place of occurrence of the external cause
CPT/HCPCS: 36415; 71045; 83690; 83735; 84100; 84484; 85025; 85730; A4606; A4663; G0378; G0480; J0780; J1200; J1650; J2060; J2405; J2560; J3475; J7040; J7042

== ENCOUNTER 2024-12-20 13:28 | Emergency (ER) | payer MEDICAID ==
[~2024-12-20] VITALS: Ht 170.2 cm; Wt 131.5 kg
[~2024-12-20 13:28] MED LIST changes: +BUSP10TA3 PO; -BUSP5TAB3 PO; -CHLO25CA22 PO; -LORA0.5T48 PO; +SUCR1ORA PO
[2024-12-20 14:11] LABS: CALCIUM 8.1 mg/dL (8.5-10.1); CREATININE 0.9 mg/dL (0.6-1.3); POTASSIUM 3.5 mmol/L (3.5-5.1)
[2024-12-20 14:17] LABS: ALBUMIN 1.7 g/dL (3.4-5.0); BILIRUBIN,TOTAL 2.7 mg/dL (0.2-1.0); TOTAL PROTEIN, SERUM 6.4 g/dL (6.4-8.2)
[2024-12-20 14:33] LABS: BASOPHILS # (AUTO) 0.1 K/UL (0.0-0.2); BASOPHILS % (AUTO) 0.6 % (0.0-2.0); EOSINOPHILS # (AUTO) 0.1 K/uL (0.0-0.7); EOSINOPHILS % (AUTO) 0.8 % (0.0-7.0); HEMATOCRIT 34.6 % (36.7-47.1); HEMOGLOBIN 11.4 g/dL (12.5-16.3); LYMPHOCYTES # (AUTO) 1.2 K/uL (0.8-4.8); LYMPHOCYTES % (AUTO) 15.6 % (20.5-51.5); MEAN CORPUSCULAR HEMOGLOBIN 32.5 uug (23.8-33.4); MEAN CORPUSCULAR HGB CONC 33 g/dL (32.5-36.3); MEAN CORPUSCULAR VOLUME 99.1 fL (73.0-96.2); MONOCYTES # (AUTO) 0.7 K/uL (0.1-1.30); MONOCYTES % (AUTO) 9.2 % (0.0-11.0); NEUTROPHILS # (AUTO) 5.9 K/uL (1.8-8.9); NEUTROPHILS % (AUTO) 73.8 % (38.5-71.5); PLATELET COUNT (AUTO) 215 K/uL (152-348); RED BLOOD CELL COUNT(AUTO) 3.49 MIL/uL (4.06-5.63); RED CELL DISTRIBUTION WIDTH 17.4 % (12.1-16.2); WHITE BLOOD COUNT (AUTO) 7.9 K/uL (3.6-10.2)
[2024-12-20 14:36] LABS: DIFFERENTIAL COMMENT 1
[2024-12-20] MEDS ORDERED: LIDOCAINE 1%-EPI 1:100,000 20 ML VIAL ONE (16:02)
[2024-12-20] MEDS: LIDOCAINE 1%-EPI 1:100,000 20 ML VIAL IJ ONE (16:04)
[2024-12-20] MEDS ORDERED: FURO40TA5 PO (16:36)
[2024-12-20] MEDS ORDERED: SPIR100T5 PO (16:36)
[2024-12-20] MEDS ORDERED: METOCLOPRAMIDE HCL 10 MG TABLET ONE (17:38)
[2024-12-20] MEDS ORDERED: TRAMADOL HCL 50 MG TABLET ONE (17:39)
[2024-12-20] MEDS: METOCLOPRAMIDE HCL 10 MG TABLET PO ONE (17:41)
[2024-12-20] MEDS: TRAMADOL HCL 50 MG TABLET PO ONE (17:42)
[2024-12-20] MEDS ORDERED: METO5TAB87 PO (17:56)
[2024-12-20] MEDS ORDERED: TRAM50TA2 PO (17:56)
[2024-12-20 19:27] VITALS: BP 126/80; TEMP 97.9; O2SAT 98
== END 2024-12-20 19:12 | disposition home or self-care (01) ==
LOC: ER 13:28
DX: E88.09 Other disorders of plasma-protein metabolism, not elsewhere classified (principal); K76.0 Fatty (change of) liver, not elsewhere classified; F41.9 Anxiety disorder, unspecified; Z79.899 Other long term (current) drug therapy
CPT/HCPCS: 99284; 76700; 80076; 80048; 85025; 85730; 36415; 36410; J3490; A4606; A4663; J8597